=== PATIENT | female | born 1960 | race Caucasian/White ===

== ENCOUNTER 2017-01-06 20:44 | Emergency (ER) | payer BC ==
[2017-01-06] MEDS ORDERED: LIDOCAINE VISC 2% 200MG/10ML UD MM ONE (21:26)
[2017-01-06 21:46] LABS: BASO % 0.2 % (0-6); EOS % 2.1 % (0-6); GRAN % 60.6 % (47-80); HEMATOCRIT 38.8 % (35.0-47.0); HEMOGLOBIN 12.4 gm/dl (11.6-16.0); LYMPH % 29.6 % (16-45); MEAN CELL VOLUME 88.8 fl (81-97); MEAN CORPUSCULAR HEMOGLOBIN 28.4 pg (27-33); MEAN PLATELET VOLUME 9.6 fl (7.4-10.4); MONO % 7.5 % (0-9); PLATELET COUNT 245 K/uL (130-400); RED BLOOD COUNT 4.37 M/uL (3.80-5.40); RED CELL DISTRIBUTION WIDTH 12.8 % (11.5-14.5); WHITE BLOOD COUNT W/O DIFF 8.5 K/uL (4.2-12.2)
--- NOTE | 2017-01-06 21:50 | Emergency Department Record ---
History of Present Illness - General Chief complaint: Nosebleed/epistaxis Stated complaint: CONTINUAL NOSE BLEED Time Seen by Provider: 01/06/17 21:06 Source: Patient, Family Mode of Arrival: Ambulatory Limitations: No limitations - History of Present Illness Initial comments: pt is here visiting from [place] and has been having multiple nose bleeds. she had 3 today. she also has a red r eye. pt has no cold symptoms. she has been exposed to 3 dogs and has dander allergies. she has a distant hx of a few nosebleeds. complaint: Epistaxis Onset/Timin -: Days(s) Location: Nose Severity: Mild Severity scale (1-10): 3 Quality: Other Consistency: Constant Improves with: None Worsens with: None - Related Data Home Medications Medication Instructions Recorded Confirmed Last Taken Fluoxetine HCl 60 mg PO DAILY 01/06/17 01/06/17 01/05/17 Lisinopril 30 mg PO DAILY 01/06/17 01/06/17 01/05/17 Allergies Allergy/AdvReac Type Severity Reaction Status Date / Time No Known Drug Allergies Allergy Verified 01/06/17 20:52 Travel Screening - Travel/Exposure Within Last 30 Days Have you traveled within the last 30 days?: No - Travel/Exposure Within Last Year Have you traveled outside the [place] in the last year?: No - Additonal Travel Details Have you been exposed to anyone with a communicable illness?: No - Travel Symptoms Symptom Screening: None Review of Systems Reviewed: No additional complaints except as noted below Constitutional: Reports: As per HPI. Denies: Chills, Fever, Malaise, Night sweats, Weakness, Weight change Eyes: Reports: As per HPI. Denies: Eye discharge, Eye pain, Photophobia, Vision change ENT: Reports: As per HPI. Denies: Congestion, Dental pain, Ear pain, Epistaxis , Hearing loss, Throat pain Respiratory: Reports: As per HPI. Denies: Cough, Dyspnea, Hemoptysis, Stridor, Wheezes Cardiovascular: Reports: As per HPI. Denies: Arrhythmia, Chest pain, Dyspnea on exertion, Edema, Murmurs, Orthopnea, Palpitations, Paroxysmal nocturnal dyspnea, Rheumatic Fever, Syncope Endocrine: Reports: As per HPI. Denies: Fatigue, Heat or cold intolerance, Polydipsia, Polyuria Gastrointestinal: Reports: As per HPI. Denies: Abdominal pain, Constipation, Diarrhea, Hematemesis, Hematochezia, Melena, Nausea, Vomiting Genitourinary: Reports: As per HPI. Denies: Abnormal menses, Discharge, Dyspareunia, Dysuria, Frequency, Hematuria, Incontinence, Retention, Urgency Musculoskeletal: Reports: As per HPI. Denies: Arthralgia, Back pain, Gout, Joint swelling, Myalgia, Neck pain Skin: Reports: As per HPI. Denies: Bruising, Change in color, Change in hair/ nails, Lesions, Pruritus, Rash Neurological: Reports: As per HPI. Denies: Abnormal gait, Confusion, Headache, Numbness, Paresthesias, Seizure, Tingling, Tremors, Vertigo, Weakness Psychiatric: Reports: As per HPI. Denies: Anxiety, Auditory hallucinations, Depression, Homicidal thoughts, Suicidal thoughts, Visual hallucinations Hematological/Lymphatic: Reports: As per HPI. Denies: Anemia, Blood Clots, Easy bleeding, Easy bruising, Swollen glands Past Medical History - SOCIAL HISTORY Smoking Status: Never smoker Alcohol Use: Rare Drug Use: None - RESPIRATORY Hx Respiratory Disorders: Yes Hx Bronchitis: Yes Hx Pneumonia: Yes - CARDIOVASCULAR Hx Cardio Disorders: Yes Hx Hypertension: Yes - NEURO Hx Neuro Disorders: No - GI Hx GI Disorders: No - Hx Genitourinary Disorders: No - ENDOCRINE Hx Endocrine Disorders: No - MUSCULOSKELETAL Hx Musculoskeletal Disorders: No - PSYCH Hx Psych Problems: Yes Hx Anxiety: Yes - HEMATOLOGY/ONCOLOGY Hx Hematology/Oncology Disorders: No Family Medical History Any Significant Family History?: No Physical Exam - General General Appearance: Alert, Oriented x3, Cooperative, Mild distress - Head Head exam: Normal inspection - Eye Eye exam: Normal appearance, PERRL, Conjunctival injection (on right), EOMI Pupils: Normal accommodation - ENT ENT exam: Normal exam, Mucous membranes moist, Normal external ear exam, Normal orophraynx Ear exam: Normal external inspection. negative: External canal tenderness Nasal Exam: Dried blood, Other (bleeding point in kisselbachs plexus). negative : Discharge, Sinus tenderness Mouth exam: Normal external inspection, Tongue normal Teeth exam: Normal inspection. negative: Dental caries Throat exam: Normal inspection. negative: Tonsillar erythema, Tonsillar exudate - Neck Neck exam: Normal inspection, Full ROM. negative: Tenderness - Respiratory Respiratory exam: Normal lung sounds bilaterally. negative: Respiratory distress - Cardiovascular Cardiovascular Exam: Regular rate, Normal rhythm, Normal heart sounds - GI/Abdominal GI/Abdominal exam: Soft, Normal bowel sounds. negative: Tenderness - Rectal Rectal exam: Deferred - exam: Deferred - Extremities Extremities exam: Normal inspection, Full ROM, Normal capillary refill. negative: Tenderness - Back Back exam: Reports: Normal inspection, Full ROM. Denies: Muscle spasm, Rash noted, Tenderness - Neurological Neurological exam: Alert, CN II-XII intact, Normal gait, Oriented X3 - Psychiatric Psychiatric exam: Normal affect, Normal mood - Skin Skin exam: Dry, Intact, Normal color, Warm Course Vital Signs 01/06/17 20:52 Temperature 98.7 F Pulse Rate 88 Respiratory 18 Rate Blood Pressure 141/98 Pulse Ox 99 - Reevaluation(s) Reevaluation #1: 01/06/17 22:27 viscous lidocaine and silver nitrate stick used Medical Decision Making - Lab Data Result diagrams: 01/06/17 21:30 Disposition Disposition: Discharge Clinical Impression: Epistaxis Conjunctivitis Qualifiers: Conjunctivitis type: acute Acute conjunctivitis type: unspecified Laterality: right Qualified Code(s): H10.31 - Unspecified acute conjunctivitis, right eye Disposition: Home, Self-Care Condition: (1) Good Instructions: Nosebleed (ED), Conjunctivitis (ED), Potassium Nitrate/Silver Nitrate (On the skin) Additional Instructions: follow up with family doctor. return sooner if worse. no blowing nose till it heals. return sooner if worse. gentamicin dropps 2 dropps 4 times a day for 4 days Forms: Patient Portal Access
[2017-01-06 21:55] LABS: INR 0.91; PARTIAL THROMBOPLASTIN TIME 27.1 SECONDS (24.5-39.1); PROTHROMBIN TIME (PATIENT) 10.3 SECONDS (9.5-12.1)
[2017-01-06] MEDS ORDERED: GENTAMICIN SULFATE 0.3% OPTH 5 ML BTL OPTH ONE (22:05)
--- NOTE | 2017-01-24 06:59 | Emergency Department Record ---
History of Present Illness - General Chief complaint: Nosebleed/epistaxis Stated complaint: CONTINUAL NOSE BLEED Time Seen by Provider: 01/06/17 21:06 Source: Patient, Family Mode of Arrival: Ambulatory Limitations: No limitations - History of Present Illness MD complaint: Epistaxis Onset/Timin -: Days(s) Location: Nose Severity: Mild Severity scale (1-10): 3 Quality: Other Consistency: Constant Improves with: None Worsens with: None - Related Data Home Medications Medication Instructions Recorded Confirmed Last Taken Fluoxetine HCl 60 mg PO DAILY 01/06/17 01/06/17 01/05/17 Lisinopril 30 mg PO DAILY 01/06/17 01/06/17 01/05/17 Allergies Allergy/AdvReac Type Severity Reaction Status Date / Time No Known Drug Allergies Allergy Verified 01/06/17 20:52 Travel Screening - Travel/Exposure Within Last 30 Days Have you traveled within the last 30 days?: No - Travel/Exposure Within Last Year Have you traveled outside the [place] in the last year?: No - Additonal Travel Details Have you been exposed to anyone with a communicable illness?: No - Travel Symptoms Symptom Screening: None Review of Systems Constitutional: Reports: As per HPI. Denies: Chills, Fever, Malaise, Night sweats, Weakness, Weight change Eyes: Reports: As per HPI. Denies: Eye discharge, Eye pain, Photophobia, Vision change ENT: Reports: As per HPI. Denies: Congestion, Dental pain, Ear pain, Epistaxis , Hearing loss, Throat pain Respiratory: Reports: As per HPI. Denies: Cough, Dyspnea, Hemoptysis, Stridor, Wheezes Cardiovascular: Reports: As per HPI. Denies: Arrhythmia, Chest pain, Dyspnea on exertion, Edema, Murmurs, Orthopnea, Palpitations, Paroxysmal nocturnal dyspnea, Rheumatic Fever, Syncope Endocrine: Reports: As per HPI. Denies: Fatigue, Heat or cold intolerance, Polydipsia, Polyuria Gastrointestinal: Reports: As per HPI. Denies: Abdominal pain, Constipation, Diarrhea, Hematemesis, Hematochezia, Melena, Nausea, Vomiting Genitourinary: Reports: As per HPI. Denies: Abnormal menses, Discharge, Dyspareunia, Dysuria, Frequency, Hematuria, Incontinence, Retention, Urgency Musculoskeletal: Reports: As per HPI. Denies: Arthralgia, Back pain, Gout, Joint swelling, Myalgia, Neck pain Skin: Reports: As per HPI. Denies: Bruising, Change in color, Change in hair/ nails, Lesions, Pruritus, Rash Neurological: Reports: As per HPI. Denies: Abnormal gait, Confusion, Headache, Numbness, Paresthesias, Seizure, Tingling, Tremors, Vertigo, Weakness Psychiatric: Reports: As per HPI. Denies: Anxiety, Auditory hallucinations, Depression, Homicidal thoughts, Suicidal thoughts, Visual hallucinations Hematological/Lymphatic: Reports: As per HPI. Denies: Anemia, Blood Clots, Easy bleeding, Easy bruising, Swollen glands Past Medical History - SOCIAL HISTORY Smoking Status: Never smoker Alcohol Use: Rare Drug Use: None - RESPIRATORY Hx Respiratory Disorders: Yes Hx Bronchitis: Yes Hx Pneumonia: Yes - CARDIOVASCULAR Hx Cardio Disorders: Yes Hx Hypertension: Yes - NEURO Hx Neuro Disorders: No - GI Hx GI Disorders: No - Hx Genitourinary Disorders: No - ENDOCRINE Hx Endocrine Disorders: No - MUSCULOSKELETAL Hx Musculoskeletal Disorders: No - PSYCH Hx Psych Problems: Yes Hx Anxiety: Yes - HEMATOLOGY/ONCOLOGY Hx Hematology/Oncology Disorders: No Family Medical History Any Significant Family History?: No Physical Exam - General Limitations: No limitations Course Vital Signs 01/06/17 01/06/17 20:52 22:38 Temperature 98.7 F 98.6 F Pulse Rate 88 86 Respiratory 18 18 Rate Blood Pressure 141/98 146/86 Pulse Ox 99 98 - Reevaluation(s) Reevaluation #1: 01/24/17 06:59 epistaxis was l bubba Medical Decision Making - Lab Data Result diagrams: 01/06/17 21:30 Lab Results 01/06/17 01/06/17 Range/Units 21:30 21:30 WBC 8.5 (4.2-12.2) K/uL RBC 4.37 (3.80-5.40) M/uL Hgb 12.4 (11.6-16.0) gm/dl Hct 38.8 (35.0-47.0) % MCV 88.8 (81-97) fl MCH 28.4 (27-33) pg MCHC 32.0 (32-36) g/dl RDW 12.8 (11.5-14.5) % Plt Count 245 (130-400) K/uL MPV 9.6 (7.4-10.4) fl Gran % 60.6 (47-80) % Lymphocytes % 29.6 (16-45) % Monocytes % 7.5 (0-9) % Eosinophils % 2.1 (0-6) % Basophils % 0.2 (0-6) % PT 10.3 (9.5-12.1) SECONDS INR 0.91 APTT 27.10 (24.5-39.1) SECONDS Disposition Clinical Impression: Epistaxis Conjunctivitis Qualifiers: Conjunctivitis type: acute Acute conjunctivitis type: unspecified Laterality: right Qualified Code(s): H10.31 - Unspecified acute conjunctivitis, right eye Disposition: Home, Self-Care Condition: (1) Good Instructions: Potassium Nitrate/Silver Nitrate (On the skin), Nosebleed (ED), Conjunctivitis (ED) Additional Instructions: follow up with family doctor. return sooner if worse. no blowing nose till it heals. return sooner if worse. gentamicin dropps 2 dropps 4 times a day for 4 days Forms: Patient Portal Access
== END 2017-01-06 22:38 | disposition home or self-care (01) ==
LOC: ER 20:44
DX: R04.0 Epistaxis (principal); H10.31 Unspecified acute conjunctivitis, right eye; I10 Essential (primary) hypertension
CPT/HCPCS: 30901; 85025; 85610; 85730; 99283